=== PATIENT | male | born 1980 | race Two or more races ===

== ENCOUNTER 2020-05-17 21:32 | Emergency (ER) | payer OTHER ==
[~2020-05-17] VITALS: Ht 157.5 cm; Wt 77.1 kg
[2020-05-17] MEDS ORDERED: IV NS 0.9% 1,000 ML BAG IV ONE (22:00)
--- NOTE | 2020-05-17 22:16 | NUR ---
BLOOD DRAWN AND IS SENT TO LAB.
--- NOTE | 2020-05-17 22:23 | NUR ---
PATIENT TAKEN TO CT VIA GURNEY BY [facility].
[2020-05-17 22:33] LABS: BASOPHILS # (AUTO) 0.1 /CMM (0.0-0.2); BASOPHILS % (AUTO) 0.4 % (0.0-2.0); EOSINOPHILS % (AUTO) 2.5 % (0.0-6.0); HEMATOCRIT 45 % (39-51); HEMOGLOBIN 14.3 g/dL (13.5-17.5); LYMPHOCYTES # (AUTO) 3.4 /CMM (0.8-4.8); LYMPHOCYTES % (AUTO) 25.4 % (20.0-44.0); MEAN CORPUSCULAR HGB CONC 32 g/dl (31.0-36.0); MEAN CORPUSCULAR VOLUME 84 fL (80-96); MONOCYTES # (AUTO) 0.9 /CMM (0.1-1.30); MONOCYTES % (AUTO) 6.7 % (2.0-12.0); NEUTROPHILS # (AUTO) 8.7 /CMM (1.8-8.9); PLATELET COUNT (AUTO) 363 /CMM (150-450); RED BLOOD CELL COUNT(AUTO) 5.38 MIL/uL (4.5-6.0); WHITE BLOOD COUNT (AUTO) 13.4 K/uL (4.3-11.0)
[2020-05-17] MEDS ORDERED: LIDOCAINE 2% JEL UROJET 10 ML MM ONE ×2 (22:48→23:00)
--- NOTE | 2020-05-17 23:01 | NUR ---
URINE COLLECTED AND SENT TO LAB.
[2020-05-17 23:24] LABS: ALANINE AMINOTRANSFERASE 27 U/L (12-78); ALBUMIN 3.8 g/dL (3.4-5.0); ALKALINE PHOSPHATASE 83 U/L (46-116); ASPARTATE AMINOTRANSFERASE 18 U/L (15-37); BILIRUBIN,DIRECT 0.1 mg/dL (0.0-0.2); BILIRUBIN,TOTAL 0.3 mg/dL (0.2-1.0); CALCIUM, SERUM 8.5 mg/dL (8.5-10.1); CARBON DIOXIDE 21 mmol/L (21-32); CHLORIDE 104 mmol/L (98-107); CREATININE 1.2 mg/dL (0.6-1.3); GLUCOSE 135 mg/dL (74-106); POTASSIUM 3.5 mmol/L (3.5-5.1); SALICYLATE 1.2 mg/dL (2.8-20.0); SODIUM SERUM 138 mmol/L (136-145); TOTAL PROTEIN, SERUM 7.5 g/dL (6.4-8.2); UREA NITROGEN, BLOOD 12 mg/dL (7-18)
[2020-05-17 23:25] LABS: ACETAMINOPHEN 0 ug/ml (10-30)
[2020-05-17 23:31] LABS: ALCOHOL, BLOOD < 3 mg/dL (0-0)
[2020-05-17 23:42] LABS: APPEARANCE,URINE CLEAR (CLEAR); BILIRUBIN,URINE NEGATIVE (NEGATIVE); BLOOD, URINE NEGATIVE Ery/uL (NEGATIVE); COLOR,URINE YELLOW (YELLOW); KETONES,URINE NEGATIVE (NEGATIVE); LEUKOCYTE ESTERASE ,URINE NEGATIVE (NEGATIVE); NITRITE, URINE NEGATIVE (NEGATIVE); PROTEIN,URINE NEGATIVE (NEGATIVE); UGLUCOSE NEGATIVE (NEGATIVE); UROBILINOGEN,URINE 0.2 EU/dL (0.2)
--- NOTE | 2020-05-17 23:44 | NUR ---
PATIENT'S MOTHER INFORMATION # [phone]
--- NOTE | 2020-05-18 00:12 | NUR ---
IV removed. Catheter intact and site benign. Pressure and 4x4 applied to site. No bleeding noted.
--- NOTE | 2020-05-18 01:09 | NUR ---
PATIENT'S MOTHER PICKED PATIENT UP TO GO HOME
[2020-05-18 01:15] VITALS: BP 129/84
== END 2020-05-18 01:15 | disposition home or self-care (01) ==
LOC: EDBD 21:35 → ER 21:35
DX: R41.82 Altered mental status, unspecified (principal); F19.10 Other psychoactive substance abuse, uncomplicated; R94.31 Abnormal electrocardiogram [ECG] [EKG]
CPT/HCPCS: 36415; 70450; 80048; 80076; 80305; 80307; 80329; 81001; 84484; 85025; 93005; 96360; 99285; G0480; J3490; J7030; 81000-TC

== ENCOUNTER 2021-04-23 18:55 | Emergency (ER) | payer OTHER ==
[~2021-04-23] VITALS: Ht 172.7 cm; Wt 68.0 kg
[2021-04-23 19:16] VITALS: BP 152/98
--- NOTE | 2021-04-23 20:13 | NUR ---
Pt refusing iv insertion and blood draw. Dr Faustin notified.
[2021-04-23] MEDS ORDERED: NALO4SPR NS (21:12)
--- NOTE | 2021-04-23 21:50 | NUR ---
Patient does not wish to proceed with medical care recommended by Dr. MARTIN. Patient given information related to possible complications, up to and including , which could occur as a result of leaving the hospital at this time. Patient verbalizes understanding of risks involved due to leaving against medical advice. Patient refused to sign AMA.
== END 2021-04-23 21:52 | disposition home or self-care (01) ==
LOC: ER 18:59
DX: T40.601A Poisoning by unspecified narcotics, accidental (unintentional), initial encounter (principal); R94.31 Abnormal electrocardiogram [ECG] [EKG]; R91.8 Other nonspecific abnormal finding of lung field; Y92.89 Other specified places as the place of occurrence of the external cause
CPT/HCPCS: 71045-TC